=== PATIENT | female | born 1990 | race American Indian/Alaskan Native ===

== ENCOUNTER 2018-05-27 11:01 | Inpatient (IN) | payer MEDICAID ==
--- NOTE | 2018-05-27 12:36 | History and Physical Report ---
History of Present Illness Date of examination: 05/27/18 Date of admission: 05/27/18 11:02 Chief complaint: Decreased Movement History of present illness: care at [facility] from 18 weeks until 36 Weeks, course complicated by constipation. Transferred into care at [facility] [employer] at 38 weeks. 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 History: chlamydia, trichomonas Family/Genetic History: diabetes (aunt), heart disease (MGM, PGF), hypertension (all grandparents) Social history: single, smoking (4-5 Cigarettes daily) - Obstetrical History Expected Date of Delivery: 05/15/18 Actual Gestation: 41 Week(s) 5 Day(s) : 6 Para: 4 Hx # Term Pregnancies: 3 Number of Pregnancies: 1 Number of Living Children: 4 #1 Gender: Male year: 2,007 Birthweight: 3.515 kg Method of Delivery: Vaginal Gestational age at delivery: 40 #2 Gender: Male year: 2,009 Birthweight: 2.495 kg Method of Delivery: Vaginal Gestational age at delivery: 38 Complications: other (Gastrochisis) #3 Gender: Male year: 2,010 Birthweight: 2.778 kg Method of Delivery: Vaginal Gestational age at delivery: 40 Complications: none #4 Gender: Male year: 2,013 Birthweight: 793.787 g Method of Delivery: Vaginal Complications: other (Prerterm delivery at 26 Weeks) Medications and Allergies Allergies Allergy/AdvReac Type Severity Reaction Status Date / Time No Known Allergies Allergy Unverified 11/19/12 13:08 Home Medications Medication Instructions Recorded Confirmed Last Taken Type HYDROcodone/APAP 5-325 [[place] 1 each PO Q6HR PRN #20 tablet 11/09/13 Unknown Rx 5/325] Promethazine [Phenergan] 25 mg PO Q6H PRN #20 tablet 11/09/13 Unknown Rx Review of Systems All systems: negative - Vital Signs Vital signs: Vital Signs Temp Resp 98.8 F 20 05/27/18 11:22 05/27/18 11:22 Temp Pulse Resp BP Pulse Ox 98.4 F 89 18 108/67 99 05/27/18 12:06 05/27/18 12:06 05/27/18 12:06 05/27/18 12:06 05/27/18 12:06 - Physical Exam Breasts: Positive: normal Cardiovascular: Regular rate Lungs: Positive: Clear to auscultation, Normal air movement Abdomen: Positive: normal appearance, soft, normal bowel sounds Genitourinary (Female): Positive: normal external genitalia, normal perenium Vagina: Positive: normal moisture Uterus: Positive: enlarged - Obstetrical FHR: category 1 Uterine Contraction Monitor Mode: External Cervical Dilatation: 4 (VTX, intact) Cervical Effacement Percentage: 60 station: -2 Uterine Contraction Pattern: Irregular Uterine Tone Measurement Phase: Resting Uterine Contraction Intensity: Mild Results All other labs normal. Assessment and Plan A: IUP @ 41 5/7 Weeks Category I Tracing Decreased Movement GBS Negative P: Admit to L&D per Routine Orders Pitocin Augmentation
[2018-05-27 12:39] LABS: Bacteria,Urine 1+ /HPF (Negative); Bilirubin,Urine NEG (Negative); Blood,Urine NEG (Negative); Color,Urine Yellow (Yellow); Mucus,Urine FEW /HPF; Protein,Urine <15 mg/dL mg/dL (Negative)
[2018-05-27] MEDS ORDERED: BRETHINE IVP PRN (12:44)
[2018-05-27] MEDS ORDERED: MINERAL OIL PO PRN (12:44)
[2018-05-27] MEDS ORDERED: NARCAN 0.4 MG/1 ML IV PRN (12:44)
[2018-05-27] MEDS ORDERED: ZOFRAN IV PRN (12:44)
[2018-05-27] MEDS ORDERED: BRETHINE SUB-Q PRN (12:44)
[2018-05-27] MEDS ORDERED: STADOL IV PRN (12:44)
[2018-05-27] MEDS ORDERED: PITOCin/NS 20 UNIT/1000ML DRIP 20,000 MILLIUNITS/1,000 ML BAG IV ONE (12:58)
[2018-05-27] MEDS ORDERED: PITOCin/NS 30 UNIT/500ML 30,000 MILLIUNITS/500 ML BAG IV ONE (12:59)
[2018-05-27] MEDS ORDERED: PITOCin/NS 30 UNIT/500ML 30 UNITS/500 ML BAG IV SCH (13:00)
[2018-05-27] MEDS ORDERED: PITOCin/NS 20 UNIT/1000ML DRIP 20 UNITS/1,000 ML BAG IV SCH (13:00)
[2018-05-27] MEDS: LACTATED RINGERS 1,000 ML IV SCH ×2 (13:16→19:09)
[2018-05-27 13:21] LABS: Hematocrit 36.3 % (30.3-42.9); Hemoglobin 12.4 gm/dl (10.1-14.3); Mean Corpuscular HGB Conc 34 % (30-34); Mean Corpuscular Volume 91 fl (79-97); Red Blood Count 3.99 M/mm3 (3.65-5.03); Red Cell Distribution Width 12.7 % (13.2-15.2)
[2018-05-27] MEDS ORDERED: XYLOCAINE 2% INFILTRATI ONE (13:44)
[2018-05-27 14:04] LABS: Platelet Count 249 K/mm3 (140-440)
--- NOTE | 2018-05-27 18:07 | Progress Note ---
Assessment and Plan A: IUP @ 41 5/7 Weeks Category I Tracing Early Labor GBS Negative P: Continue Pitocin Augmentation AROM Subjective - Subjective Date of service: 05/27/18 Interval history: care at [facility] from 18 weeks until 36 Weeks, course complicated by constipation. Transferred into care at [facility] [employer] at 38 weeks. Patient reports: movement normal, contractions Objective - Vital Signs Vital Signs: Vital Signs - 12hr 05/27/18 05/27/18 05/27/18 11:22 12:06 16:34 Temperature 98.8 F 98.4 F Pulse Rate 89 68 Respiratory 20 18 Rate Blood Pressure 109/64 Blood Pressure 108/67 [Left] O2 Sat by Pulse 99 Oximetry 05/27/18 05/27/18 05/27/18 16:49 17:03 17:18 Temperature Pulse Rate 70 69 77 Respiratory Rate Blood Pressure 105/57 99/60 97/58 Blood Pressure [Left] O2 Sat by Pulse Oximetry 05/27/18 05/27/18 05/27/18 17:35 17:49 17:55 Temperature 97.6 F Pulse Rate 75 74 Respiratory Rate Blood Pressure 105/59 109/61 Blood Pressure [Left] O2 Sat by Pulse Oximetry - Exam Breasts: normal Cardiovascular: Regular rate Lungs: Clear to auscultation, Normal air movement Abdomen: Present: normal appearance, soft, normal bowel sounds Uterus: Present: normal, firm FHR: category 1 Uterine Contraction Monitor Mode: External Cervical Dilatation: 4.5 (Moderate amount of clear fluid upon AROM @ 1758) Cervical Effacement Percentage: 80 station: -2 Uterine Contraction Frequency (min): 1-2 Uterine Contraction Pattern: Regular Uterine Tone Measurement Phase: Resting Uterine Contraction Intensity: Moderate Extremities: normal - Labs Labs: Abnormal Labs 05/27/18 12:28 RDW 12.7 L Laboratory Results - last 24 hr 05/27/18 05/27/18 05/27/18 11:50 12:15 12:28 WBC 9.1 RBC 3.99 Hgb 12.4 Hct 36.3 MCV 91 MCH 31 MCHC 34 RDW 12.7 L Plt Count 249 Urine Color Yellow Urine Turbidity Clear Urine pH 7.0 Ur Specific [place] 1.010 Urine Protein <15 mg/dl Urine Glucose (UA) Neg Urine Ketones Neg Urine Blood Neg Urine Nitrite Neg Urine Bilirubin Neg Urine Urobilinogen 2.0 Ur Leukocyte Esterase Mod Urine WBC (Auto) 1.0 Urine RBC (Auto) 2.0 U Epithel Cells (Auto) 5.0 Urine Bacteria (Auto) 1+ Urine Mucus Few Blood Type A POSITIVE Antibody Screen Negative
[2018-05-27] MEDS ORDERED: SUBLIMAZE ONE (18:18)
[2018-05-27] MEDS ORDERED: XYLOCAINE 2%/ EPI 1:200,000 INFILTRATI ONE (18:18)
[2018-05-27] MEDS ORDERED: NARCAN 2 MG/2 ML IV PRN (18:21)
--- NOTE | 2018-05-27 18:23 | Anesthesia Consultation ---
Anesthesia Consult and Med Hx Date of service: 05/27/18 - Airway Anesthetic Teeth Evaluation: Good ROM Head & Neck: Adequate Mental/Hyoid Distance: Adequate Mallampati Class: Class I Intubation Access Assessment: Good - Pulmonary Exam CTA: Yes - Cardiac Exam Cardiac Exam: RRR - Pre-Operative Health Status ASA Pre-Surgery Classification: ASA2 Proposed Anesthetic Plan: Epidural - Pulmonary Hx Asthma: No COPD: No Home Oxygen Therapy: No Hx Pneumonia: No Hx Sleep Apnea: No - Cardiovascular System Hx Hypertension: No Hx Coronary Artery Disease: No Hx Heart Attack/AMI: No Hx Angina: No Hx Percutaneous Transluminal Coronary Angioplasty (PTCA): No Hx Cardia Arrhythmia: No Hx Pacemaker: No Hx Internal Defibrillator: No Hx Valvular Heart Disease: No Hx Heart Murmur: No Hx Peripheral Vascular Disease: No - Central Nervous System Hx Neuromuscular Disorder: No Hx Seizures: No CVA: No Hx Back Pain: No Hx Psychiatric Problems: No - Gastrointestinal Hx Ulcer: No Hx Gastroesophageal Reflux Disease: No - Endocrine Hx Renal Disease: No Hx End Stage Renal Disease: No Hx Cirrhosis: No Hx Liver Disease: No Hx Insulin Dependent Diabetes: No Hx Non-Insulin Dependent Diabetes: No Hx Thyroid Disease: No Hx Hypothyroidism: No Hx Hyperthyroidism: No - Hematic Hx Anemia: No Hx Sickle Cell Disease: No - Other Systems Hx Alcohol Use: Yes (before preg, but stop) Hx Substance Use: No Hx Cancer: No Hx Obesity: No
[2018-05-27] MEDS ORDERED: fentaNYL-BUPIV 2 MCG/ML-0.125% 200 MCG/100 ML BAG EPIDURAL SCH (19:00)
[2018-05-27] MEDS ORDERED: TUCKS PAD TP PRN (22:10)
[2018-05-27] MEDS ORDERED: BENADRYL PO PRN (22:10)
[2018-05-27] MEDS ORDERED: LANSINOH TP PRN (22:10)
[2018-05-27] MEDS ORDERED: NORCO 5/325 PO PRN (22:10)
--- NOTE | 2018-05-27 22:17 | Procedure Note ---
OB Delivery Note - Delivery Date of Delivery: 05/27/18 (2142) Surgeon: GARLAND BOWLES Estimated blood loss: 200cc - Vaginal Delivery presentation: vertex Delivery position: OA Intrapartum events: none Delivery induction: oxytocin Delivery augmentation: rupture of membranes, pitocin Delivery monitor: external uterine, internal FHT Route of delivery: Delivery placenta: spontaneous Delivery cord: nuchal cord, 3 umbilical vessels Episiotomy: none Delivery laceration: none Anesthesia: epidural Delivery comments: of a live 7'10 male infant over a intact perineum under epidural anesthesia with Apgars 7 and 9 at 2143 on 05/27/2018. Nuchal cord x 1 easily manually reduced on the perineum prior to delivery of the anterior shoulder. Spontaneous delivery of the placenta complete and intact with Anderson side presenting at 214. Fundus is firm and midline located 4 below the U. Lochia is scant. - A at 1 minute: 7 at 5 minutes: 9 Infant Gender: Male (7'10)
[2018-05-27] MEDS ORDERED: SODIUM CHLORIDE FLUSH SYRINGE 10 ML IV PRN (23:00)
[2018-05-28] MEDS: IBUPROFEN PO SCH ×3 (05:11→17:58)
--- NOTE | 2018-05-28 07:07 | Post Anesthesia Evaluation ---
- Post Anesthesia Evaluation Patient Participated: Yes Airway Patent: Yes Stable Respiratory Function: Yes Nausea/Vomiting: No Temp > 96.8F: Yes Pain Manageable: Yes Adequeate Hydration: Yes Anesthesia Complications: No Block Receding Appropriately: Yes Patient on Ventilator: No
[2018-05-28] MEDS: PRENATAL VITAMIN PO SCH (10:10)
--- NOTE | 2018-05-28 11:00 | Progress Note ---
Assessment and Plan A: PP Day #1 s/p Stable P: Follow Routine orders Discharge home 05/29/18 Subjective - Subjective Date of service: 05/28/18 Principal diagnosis: PPD#1 s/p NSVD05/27/18 @2143 Patient reports: appetite normal, voiding normally, pain well controlled, flatus, ambulating normally, no bowel movement : doing well, bottle feeding Objective - Vital Signs Latest vital signs: Vital Signs Temp Pulse Resp BP BP Pulse Ox 05/28/18 08:09 97.5 F L 80 20 101/58 97 05/28/18 05:11 18 05/27/18 23:43 80 119/67 05/27/18 23:29 91 H 117/71 05/27/18 23:13 72 114/55 05/27/18 22:58 80 121/61 05/27/18 22:43 100 H 119/58 05/27/18 22:28 107 H 122/72 05/27/18 22:13 136 H 122/62 05/27/18 22:07 115 H 117/57 05/27/18 22:06 96.8 F L 97 H 18 117/57 05/27/18 21:58 97 H 119/59 05/27/18 21:32 78 106/66 05/27/18 21:01 74 111/54 05/27/18 20:55 74 96/55 05/27/18 20:32 76 95/51 05/27/18 20:03 96.1 F L 71 18 93/55 05/27/18 20:01 71 93/55 05/27/18 19:32 81 90/50 05/27/18 19:04 77 106/60 05/27/18 19:01 72 72/48 05/27/18 18:59 74 125/56 05/27/18 18:56 73 113/59 05/27/18 18:54 76 114/55 05/27/18 18:52 76 113/58 05/27/18 18:50 80 112/59 05/27/18 18:49 85 110/61 05/27/18 18:46 78 108/58 05/27/18 18:45 85 109/57 05/27/18 18:43 99 H 114/61 05/27/18 18:41 106 H 128/58 05/27/18 18:40 107 H 127/58 05/27/18 18:38 99 H 116/59 05/27/18 18:36 83 115/59 05/27/18 18:35 85 119/57 05/27/18 18:34 83 126/65 05/27/18 18:33 80 126/70 05/27/18 18:32 89 127/71 05/27/18 18:30 82 119/71 05/27/18 18:20 79 114/69 05/27/18 18:06 75 118/63 05/27/18 17:55 97.6 F 05/27/18 17:49 74 109/61 05/27/18 17:35 75 105/59 05/27/18 17:18 77 97/58 05/27/18 17:03 69 99/60 05/27/18 16:49 70 105/57 05/27/18 16:34 68 109/64 05/27/18 12:06 98.4 F 89 18 108/67 99 05/27/18 11:22 98.8 F 20 Intake and Output 05/27/18 05/28/18 05/28/18 23:59 07:59 15:59 Intake Total 772.284 Output Total 1550 Balance 772.284 -1550 Intake: IV 772.284 Lactated Ringers 1,000 ml 735.417 @ 125 mls/hr IV DIRECT [facility] Rx#:[id number] PITOCin/NS 30 UNIT/500ML 36.867 30 units In 500 ml @ 4 mls/hr IV TITR RODERICK Rx#: [id number] Output: Urine 1550 Void 1550 Other: Total, Output Amount 350 # Voids Void 1 Estimated Blood Loss 200 - Exam Breasts: Present: normal Cardiovascular: Present: Regular rate, Normal S1, Normal S2, No murmurs Lungs: Present: Clear to auscultation, Normal air movement Abdomen: Present: normal appearance, soft, normal bowel sounds. Absent: distention Vulva: both: normal Uterus: Present: firm, fundal height below umbilicus (-1) Extremities: Present: normal - Labs Labs: Abnormal lab results 05/27/18 Range/Units 12:28 RDW 12.7 L (13.2-15.2) %
--- NOTE | 2018-05-28 11:01 | Discharge Summary ---
Providers - Providers Date of Admission: 05/27/18 11:02 Date of discharge: 05/29/18 Attending physician: TEE LEMON MD Primary care physician: TEE LEMON MD Hospitalization Reason for admission: IUP at term Delivery: Procedure details: See H&P and delivery note Episiotomy: none Laceration: none complications: none Discharge diagnosis: IUP at term delivered baby: male Condition at discharge: Good Disposition: DC-01 TO HOME OR SELFCARE Plan - Provider Discharge Summary Activity: routine, no sex for 6 weeks, no heavy lifting 4 weeks, no strenuous exercise Diet: routine Instructions: routine Additional instructions: [] Smoking cessation referral if applicable(refer to patient education folder for contact #) [] Refer to [facility] Booklet Call your doctor immediately for: * Fever > 100.5 * Heavy vaginal bleeding ( >1 pad per hour) * Severe persistent headache * Shortness of breath * Reddened, hot, painful area to leg or breast * Drainage or odor from incision. * Keep incision clean and dry at all times and follow doctor's instructions regarding bathing/showering - Follow up plan Follow up: TEE LEMON MD [Primary Care Provider] - 6 Weeks
[2018-05-28 11:03] LABS: Hematocrit 32.6 % (30.3-42.9); Hemoglobin 11.1 gm/dl (10.1-14.3)
[2018-05-28] MEDS ORDERED: DEPO-PROVERA (CONTRACEPTION) IM ONE (12:02)
[2018-05-29] MEDS: IBUPROFEN PO SCH ×3 (01:29→15:58)
[2018-05-29] MEDS ORDERED: DEPO-PROVERA (CONTRACEPTION) IM ONE (06:00)
[2018-05-29] MEDS: PRENATAL VITAMIN PO SCH (10:22)
[2018-05-29 17:45] VITALS: BP 115/70
== END 2018-05-29 17:47 | disposition home or self-care (01) | DRG 775 ==
LOC: TRG 11:01 → LD 11:02 → TRG 11:04 → OB 05-28 00:11
PROVIDERS: ADMIT Obstetrics & Gynecology; ATTEND Obstetrics & Gynecology
PROC: 10E0XZZ Delivery of Products of Conception, External Approach (ICD-10-PCS; principal; 2018-05-27)
PROC: 10907ZC Drainage of Amniotic Fluid, Therapeutic from Products of Conception, Via Natural or Artificial Opening (ICD-10-PCS; 2018-05-27)
PROC: 3E033VJ Introduction of Other Hormone into Peripheral Vein, Percutaneous Approach (ICD-10-PCS; 2018-05-27)
PROC: 3E0R3BZ Introduction of Anesthetic Agent into Spinal Canal, Percutaneous Approach (ICD-10-PCS; 2018-05-27)
PROC: 00HU33Z Insertion of Infusion Device into Spinal Canal, Percutaneous Approach (ICD-10-PCS; 2018-05-27)
DX: O36.8130 Decreased fetal movements, third trimester, not applicable or unspecified (principal); O69.81X0 Labor and delivery complicated by cord around neck, without compression, not applicable or unspecified; F17.210 Nicotine dependence, cigarettes, uncomplicated; O99.334 Smoking (tobacco) complicating childbirth; Z3A.41 41 weeks gestation of pregnancy; Z37.0 Single live birth; Z83.3 Family history of diabetes mellitus; Z82.49 Family history of ischemic heart disease and other diseases of the circulatory system
CPT/HCPCS: 36415; 81001; 85014; 85018; 85027; 86592; 86850; 86900; 86901; G0378; A6250; J0595; J1050; J2590; J3010; J7120

== ENCOUNTER 2019-05-13 13:47 | Emergency (ER) | payer MEDICAID ==
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
--- NOTE | 2019-05-13 15:00 | XRay Report ---
CERVICAL SPINE 3 VIEWS INDICATION: neck pain. COMPARISON: No relevant prior imaging study available. FINDINGS: As the patient is positioned, there is loss of normal cervical lordosis. This could be due to muscle spasm or patient positioning. Alignment is otherwise unremarkable without listhesis. No fracture or p revertebral soft tissue swelling is seen. No significant degenerative changes. IMPRESSION: 1. No acute findings. LEFT SHOULDER 3 VIEWS INDICATION: Left shoulder pain. COMPARISON: No relevant prior imaging study available. FINDINGS: There is no acute skeletal abnormality. No significant degenerative changes. No soft tissue calcifica tions. IMPRESSION: 1. No acute findings. Signer Name: Steve Flaherty MD Signed: 05/13/2019 2:56 PM Workstation Name: [id number]
[2019-05-13] MEDS ORDERED: KETOROLAC 30 MG/1 ML INJ IM ONE (19:08)
[2019-05-13] MEDS ORDERED: dexAMETHasone 20 MG/5 ML VIAL IM ONE (19:08)
[2019-05-13 19:49] VITALS: BP 115/73
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
== END 2019-05-13 20:30 | disposition home or self-care (01) ==
LOC: ED 13:47
DX: S46.912A Strain of unspecified muscle, fascia and tendon at shoulder and upper arm level, left arm, initial encounter (principal); S16.1XXA Strain of muscle, fascia and tendon at neck level, initial encounter; S80.12XA Contusion of left lower leg, initial encounter; F17.200 Nicotine dependence, unspecified, uncomplicated; Z79.899 Other long term (current) drug therapy; X58.XXXA Exposure to other specified factors, initial encounter; Y93.89 Activity, other specified; Y92.89 Other specified places as the place of occurrence of the external cause; Y99.8 Other external cause status
CPT/HCPCS: 72040; 73030; 96372; 99283; J1100; J1885